=== PATIENT | female | born 1975 | race Caucasian/White ===

== ENCOUNTER 2016-10-26 17:45 | Observation (INO) | payer BC ==
[2016-10-26] MEDS ORDERED: SODIUM CHLORIDE 0.9% 1,000 ML IV ONE ×2 (18:33)
[2016-10-26] MEDS ORDERED: HYDROcodone/APAP 5-325MG 1 EACH TAB PO STA (18:33)
--- NOTE | 2016-10-26 18:39 | ED ---
Female Urogenital HPI - General Source: patient, RN notes reviewed, old records reviewed Mode of arrival: ambulatory Limitations: no limitations - History of Present Illness Last Menstrual Period: 10/26/16 <Myriam Burgess - Last Filed: 10/26/16 20:37> <Wicho Armendariz - Last Filed: 10/26/16 21:13> - General Chief complaint: Vaginal Bleeding Stated complaint: female gu Time Seen by Provider: 10/26/16 18:07 - History of Present Illness Initial comments: 40-year-old female presents to the emergency Department chief complaint of increased vaginal bleeding over the past 3 days. She reports that she said history of severe heavy menstrual cycles. She states that she is feeling somewhat weak and lightheaded. Patient reports that she's been going through a pad an hour. She reports that she just feels very tired. She states that she has some abdominal cramping. Denies any nausea or vomiting or other abdominal pain. She states that she had normal urination and bowel movements. She reports that she previously had take progesterone for managing her heavy menstrual cycles. She reports that she has not been taking that over the past 3 months as her FIELD ARTILLERY TARGETING TECHNICIAN Stotler take it anymore. Patient denies any recent fever , chills, shortness of breath, chest pain, back pain, abdominal pain, nausea vomiting, numbness or tingling, dysuria or hematuria, constipation or diarrhea, headaches or visual changes, or any other current symptoms (Myriam Burgess) - Related Data Home Medications Medication Instructions Recorded Confirmed Acetaminophen Tab [Tylenol Tab] 650 mg PO Q6H PRN 10/26/16 10/26/16 Diltiazem HCl [Cartia Xt] 120 mg PO DAILY 10/26/16 10/26/16 Pravastatin Sodium [Pravachol] 20 mg PO DAILY 10/26/16 10/26/16 Allergies Allergy/AdvReac Type Severity Reaction Status Date / Time No Known Allergies Allergy Verified 10/26/16 18:20 Review of Systems ROS Other: All systems not noted in ROS Statement are negative. <Myriam Burgess - Last Filed: 10/26/16 20:37> ROS Other: All systems not noted in ROS Statement are negative. <Wicho Armendariz - Last Filed: 10/26/16 21:13> ROS Statement: Those systems with pertinent positive or pertinent negative responses have been documented in the HPI. Past Medical History Past Medical History: Hyperlipidemia, Hypertension History of Any Multi-Drug Resistant Organisms: None Reported Past Surgical History: Section Past Psychological History: Depression Smoking Status: Never smoker Past Alcohol Use History: None Reported Past Drug Use History: None Reported <Myriam Burgess - Last Filed: 10/26/16 20:37> General Exam Limitations: no limitations General appearance: alert, in no apparent distress Head exam: Present: atraumatic, normocephalic, normal inspection Eye exam: Present: normal appearance, PERRL, EOMI. Absent: scleral icterus, conjunctival injection, periorbital swelling ENT exam: Present: normal exam, mucous membranes moist Neck exam: Present: normal inspection. Absent: tenderness, meningismus, lymphadenopathy Respiratory exam: Present: normal lung sounds bilaterally. Absent: respiratory distress, wheezes, rales, rhonchi, stridor Cardiovascular Exam: Present: regular rate, normal rhythm, normal heart sounds. Absent: systolic murmur, diastolic murmur, rubs, gallop, clicks GI/Abdominal exam: Present: soft, normal bowel sounds. Absent: distended, tenderness, guarding, rebound, rigid External exam: Present: normal external exam Speculum exam: Present: vaginal bleeding. Absent: normal speculum exam By manual exam: Present: normal by manual exam Extremities exam: Present: normal inspection, full ROM, normal capillary refill. Absent: tenderness, pedal edema, joint swelling, calf tenderness Back exam: Present: normal inspection Neurological exam: Present: alert, oriented X3, CN II-XII intact Psychiatric exam: Present: normal affect, normal mood Skin exam: Present: warm, dry, intact, normal color. Absent: rash <Myriam Burgess - Last Filed: 10/26/16 20:37> <Wicho Armendariz - Last Filed: 10/26/16 21:13> - General Exam Comments Initial Comments: 40-year-old female. No acute distress. (Myriam Burgess) Medical Decision Making - Lab Data Result diagrams: 10/26/16 19:00 10/26/16 19:00 <Myriam Burgess - Last Filed: 10/26/16 20:37> - Lab Data Result diagrams: 10/26/16 19:00 10/26/16 19:00 <Wicho Armendariz - Last Filed: 10/26/16 21:13> - Medical Decision Making 40-year-old female presents to the emergency Department chief complaint of increased vaginal bleeding over the past 3 days. She reports that she said history of severe heavy menstrual cycles. She states that she is feeling somewhat weak and lightheaded. Patient reports that she's been going through a pad an hour. She reports that she just feels very tired. She states that she has some abdominal cramping. Denies any nausea or vomiting or other abdominal pain. She states that she had normal urination and bowel movements. Patient has significant vaginal bleeding on exam. No significant abdominal tenderness. Patient received transvaginal ultrasound. Hemoglobin was noted to be low at 7.8. She does have a mellowing machine operator doctor From [place]. Patient Reports That She Has Not Seen Him in Many Months. She Recently Moved up Here. Discussed Case with Dr. Armendariz. Case Will Be Transferred to Dr. Armendariz at 8:32 PM. (Myriam Burgess) Patient presents today with heavy menstrual bleeding with a hemoglobin of only 7.8 and hematocrit 25. No old numbers are available for us to compare to. The patient reports increased vaginal bleeding for the past week. The patient did have an ultrasound and final impression is no evidence of endometrial mass. No adnexal mass or free fluid. No evidence of ovarian torsion. As read by Dr. Cifuentes. The patient's labs also included an INR 1.0, potassium 3.7 with a BUN 13 creatinine 0.81 the GFR greater than 60. Glucose 150. Patient is not . The case was discussed with Dr. mak on-call FIELD ARTILLERY TARGETING TECHNICIAN. Patient will receive 2 units of packed RBCs and a CBC in the morning. Dr. Armendariz (Wicho Armendariz) - Lab Data Lab Results 10/26/16 10/26/16 10/26/16 Range/Units 19:00 19:00 19:00 WBC 5.2 (3.8-10.6) k/uL RBC 3.53 L (3.80-5.40) m/uL Hgb 7.8 L (11.4-16.0) gm/dL Hct 25.5 L (34.0-46.0) % MCV 72.3 L (80.0-100.0) fL MCH 22.3 L (25.0-35.0) pg MCHC 30.8 L (31.0-37.0) g/dL RDW 17.4 H (11.5-15.5) % Plt Count 218 (150-450) k/uL Neutrophils % 65 % Lymphocytes % 26 % Monocytes % 4 % Eosinophils % 3 % Basophils % 1 % Neutrophils # 3.4 (1.3-7.7) k/uL Lymphocytes # 1.3 (1.0-4.8) k/uL Monocytes # 0.2 (0-1.0) k/uL Eosinophils # 0.2 (0-0.7) k/uL Basophils # 0.0 (0-0.2) k/uL Hypochromasia Marked Anisocytosis Slight Microcytosis Moderate PT 10.3 (9.0-12.0) sec INR 1.0 (<1.2) APTT 22.0 (22.0-30.0) sec Sodium 138 (137-145) mmol/L Potassium 3.7 (3.5-5.1) mmol/L Chloride 105 (98-107) mmol/L Carbon Dioxide 24 (22-30) mmol/L Anion Gap 9 mmol/L BUN 13 (7-17) mg/dL Creatinine 0.81 (0.52-1.04) mg/dL Est GFR (MDRD) Af Amer >60 (>60 ml/min/1.73 sqM) Est GFR (MDRD) Non-Af >60 (>60 ml/min/1.73 sqM) Glucose 150 H (74-99) mg/dL Calcium 8.6 (8.4-10.2) mg/dL Urine Color Urine Appearance (Clear) Urine pH (5.0-8.0) Ur Specific [place] (1.001-1.035) Urine Protein (Negative) Urine Glucose (UA) (Negative) Urine Ketones (Negative) Urine Blood (Negative) Urine Nitrite (Negative) Urine Bilirubin (Negative) Urine Urobilinogen (<2.0) mg/dL Ur Leukocyte Esterase (Negative) Urine RBC (0-5) /hpf Urine WBC (0-5) /hpf Ur Squamous Epith Cells (0-4) /hpf Urine HCG, Qual (Not Detectd) Blood Type Blood Type Recheck Antibody Screen Crossmatch Spec Expiration Date 10/26/16 10/26/16 10/26/16 Range/Units 19:00 19:00 19:00 WBC (3.8-10.6) k/uL RBC (3.80-5.40) m/uL Hgb (11.4-16.0) gm/dL Hct (34.0-46.0) % MCV (80.0-100.0) fL MCH (25.0-35.0) pg MCHC (31.0-37.0) g/dL RDW (11.5-15.5) % Plt Count (150-450) k/uL Neutrophils % % Lymphocytes % % Monocytes % % Eosinophils % % Basophils % % Neutrophils # (1.3-7.7) k/uL Lymphocytes # (1.0-4.8) k/uL Monocytes # (0-1.0) k/uL Eosinophils # (0-0.7) k/uL Basophils # (0-0.2) k/uL Hypochromasia Anisocytosis Microcytosis PT (9.0-12.0) sec INR (<1.2) APTT (22.0-30.0) sec Sodium (137-145) mmol/L Potassium (3.5-5.1) mmol/L Chloride (98-107) mmol/L Carbon Dioxide (22-30) mmol/L Anion Gap mmol/L BUN (7-17) mg/dL Creatinine (0.52-1.04) mg/dL Est GFR (MDRD) Af Amer (>60 ml/min/1.73 sqM) Est GFR (MDRD) Non-Af (>60 ml/min/1.73 sqM) Glucose (74-99) mg/dL Calcium (8.4-10.2) mg/dL Urine Color Red Urine Appearance Cloudy H (Clear) Urine pH 5.5 (5.0-8.0) Ur Specific [place] 1.019 (1.001-1.035) Urine Protein 1+ H (Negative) Urine Glucose (UA) Negative (Negative) Urine Ketones Negative (Negative) Urine Blood Large H (Negative) Urine Nitrite Negative (Negative) Urine Bilirubin Negative (Negative) Urine Urobilinogen <2.0 (<2.0) mg/dL Ur Leukocyte Esterase Moderate H (Negative) Urine RBC >182 H (0-5) /hpf Urine WBC >182 H (0-5) /hpf Ur Squamous Epith Cells 11 H (0-4) /hpf Urine HCG, Qual Not Detected (Not Detectd) Blood Type A Negative Blood Type Recheck CABO Indicated Antibody Screen NEGATIVE Crossmatch See Detail Spec Expiration Date 10/29/2016 - 2300 Disposition <Myriam Burgess - Last Filed: 10/26/16 20:37> <Wicho Armendariz - Last Filed: 10/26/16 21:13> Clinical Impression: Menorrhagia, Dysfunctional uterine bleeding Disposition: ADMITTED IP TO THIS [facility] Condition: Fair Referrals: Nonstaff,Physician [Primary Care Provider] - 1-2 days
[2016-10-26 19:15] LABS: Anisocytosis Slight; Basophils % (A) 1 %; CH 21.2; CHCM 29.4; Eosinophils # (A) 0.2 k/uL (0-0.7); Eosinophils % (A) 3 %; HCT 25.5 % (34.0-46.0); HGB 7.8 gm/dL (11.4-16.0); Hypochromasia Marked; Luc # (Auto) 0.07; Luc % (Auto) 1; Lymphocytes # (A) 1.3 k/uL (1.0-4.8); Lymphocytes % (A) 26 %; MCH 22.3 pg (25.0-35.0); MCHC 30.8 g/dL (31.0-37.0); MCV 72.3 fL (80.0-100.0); Mean Platelet Volume 7.9; Microcytosis Moderate; Monocytes # (A) 0.2 k/uL (0-1.0); Monocytes % (A) 4 %; Neutrophils # (A) 3.4 k/uL (1.3-7.7); Neutrophils % (A) 65 %; RBC 3.53 m/uL (3.80-5.40); RDW 17.4 % (11.5-15.5); WBC 5.2 k/uL (3.8-10.6); WBC (Perox) 5.06
[2016-10-26 19:23] LABS: Anion Gap 9 mmol/L; Blood Urea Nitrogen 13 mg/dL (7-17); Calcium 8.6 mg/dL (8.4-10.2); Carbon Dioxide 24 mmol/L (22-30); Chloride 105 mmol/L (98-107); Glucose 150 mg/dL (74-99); Non-African American GFR(MDRD) >60 (>60 ml/min/1.73 sqM); Potassium 3.7 mmol/L (3.5-5.1); Sodium 138 mmol/L (137-145)
[2016-10-26 19:34] LABS: Appearance,Urine Cloudy (Clear); Bilirubin,Urine Negative (Negative); Glucose,Urine (UA) Negative (Negative); Ketones,Urine Negative (Negative); Leukocyte Esterase,Urine Moderate (Negative); Nitrite,Urine Negative (Negative); PH, Urine 5.5 (5.0-8.0); Particle Count 14868; Protein,Urine 1+ (Negative); RBC,Urine >182 /hpf (0-5); Specific Gravity,Urine 1.019 (1.001-1.035); Squamous Epithelial Cell,Urine 11 /hpf (0-4); UA Billing (MACRO vs. MICRO) MICRO; Urobilinogen,Urine <2.0 mg/dL (<2.0); WBC,Urine >182 /hpf (0-5)
[2016-10-26 19:41] LABS: Prothrombin Time 10.3 sec (9.0-12.0)
--- NOTE | 2016-10-26 20:47 | US ---
EXAMINATION TYPE: US transvaginal DATE OF EXAM: 10/26/2016 COMPARISON: NONE CLINICAL HISTORY: Pain. EC patient with heavy and long duration of menses; feels tired; HT 5'7", WT 2 62lbs. TECHNIQUE: Transvaginal (TV) Date of LMP: 10/22/2016 EXAM MEASUREMENTS: Uterus: 9.0 x 7.0 x 5.8 cm Endometrial Stripe: 1.1 cm Right Ovary: 3.1 x 2.0 x 2.3 cm Left Ovary: 3.0 x 2.6 x 1.7 cm 1. Uterus: Retroverted ; multiple Nabothian cysts in Cervix with largest = 1.3 x 1.0 x 1.2cm; multip le, small hyperechoic, shadowing foci noted in left myometrium. 2. Endometrium: Day 5 LMP 3. Right Ovary: multiple small follicles with largest = 0.6 x 0.6 x 0.6cm 4. Left Ovary: multiple small follicles with largest = 0.9 x 0.7 x 0.5cm Spectral, color and waveform Doppler imaging shows good arterial and venous flow within the ovaries ; there is no evidence for ovarian torsion. 5. Bilateral Adnexa: wnl 6. Posterior cul-de-sac: wnl IMPRESSION: No evidence of endometrial mass. No adnexal mass or free fluid. No evidence of ovarian to rsion.
[2016-10-26] MEDS ORDERED: NALOXONE 0.4 MG/ML 1 ML VIAL IV PRN (21:14)
[2016-10-26] MEDS ORDERED: ACETAMINOPHEN TAB 325 MG TAB PO PRN (23:32)
[2016-10-26] MEDS ORDERED: ZOLPIDEM 5 MG TAB PO PRN (23:35)
[2016-10-27] MEDS: SODIUM CHLORIDE 0.9% 1,000 ML IV SCH ×2 (02:55→08:03)
--- NOTE | 2016-10-27 06:55 | P.HPIM ---
History of Present Illness H&P Date: 10/27/16 Chief Complaint: Vaginal bleeding, anemia A 40-year-old female ( 1 vaginal with 2 c sections) that presented to the emergency department last night with complaints of increased vaginal bleeding. She states that she was being seen by a learning disabilities specialist who was cycling her with progesterone secondary to this heavy menstrual bleeding. she recently moved to the area and is without care currently. she did d/c her progesterone, and that is when her bleeding increased. She presented last night hemoglobin was noted to be 7.8. At that time she was admitted to the hospital for 1 unit of packed red cells and for monitoring. ED did order a TVUS for evaluation of the pelvis. Review of Systems Constitutional: Reports fatigue Past Medical History Past Medical History: Hyperlipidemia, Hypertension History of Any Multi-Drug Resistant Organisms: None Reported Past Surgical History: Section Past Anesthesia/Blood Transfusion Reactions: No Reported Reaction Past Psychological History: Depression Smoking Status: Never smoker Past Alcohol Use History: None Reported Past Drug Use History: None Reported - Past Family History Mother Family Medical History: Diabetes Mellitus, Hyperlipidemia, Hypertension Medications and Allergies Home Medications Medication Instructions Recorded Confirmed Type Acetaminophen Tab [Tylenol Tab] 650 mg PO Q6H PRN 10/26/16 10/26/16 History Diltiazem HCl [Cartia Xt] 120 mg PO DAILY 10/26/16 10/26/16 History Pravastatin Sodium [Pravachol] 20 mg PO DAILY 10/26/16 10/26/16 History Allergies Allergy/AdvReac Type Severity Reaction Status Date / Time No Known Allergies Allergy Verified 10/26/16 18:20 Physical Exam Osteopathic Statement: *. No significant issues noted on an osteopathic structural exam other than those noted in the History and Physical/Consult. Vitals: Vital Signs Temp Pulse Pulse Resp BP BP Pulse Ox 10/27/16 01:57 98 F 80 18 123/63 10/26/16 23:37 98.5 F 84 18 147/68 10/26/16 23:22 97.9 F 88 14 128/75 99 10/26/16 23:07 98.2 F 86 18 140/72 10/26/16 23:05 98.2 F 86 18 140/72 10/26/16 22:57 98 F 87 18 138/62 10/26/16 21:19 98 F 92 18 138/62 99 10/26/16 19:09 70 18 100 10/26/16 18:03 98.4 F 107 H 18 153/91 96 Intake and Output 10/26/16 10/26/16 10/27/16 14:59 22:59 06:59 Intake Total 0 310 Balance 0 310 Intake: Blood Product 0 310 Rc As-1 Unit 0 310 [id number] Other: # Voids 2 Weight 119.204 kg Patient Weight 10/27/16 06:59 Weight 119.204 kg - Constitutional General appearance: average body habitus, cooperative, no acute distress - EENT Eyes: EOMI - Respiratory Respiratory: bilateral: CTA - Cardiovascular Rhythm: regular Results CBC & Chem 7: 10/26/16 19:00 10/26/16 19:00 Labs: Abnormal Lab Results - Last 24 Hours (Table) 10/26/16 10/26/16 10/26/16 Range/Units 19:00 19:00 19:00 RBC 3.53 L (3.80-5.40) m/uL Hgb 7.8 L (11.4-16.0) gm/dL Hct 25.5 L (34.0-46.0) % MCV 72.3 L (80.0-100.0) fL MCH 22.3 L (25.0-35.0) pg MCHC 30.8 L (31.0-37.0) g/dL RDW 17.4 H (11.5-15.5) % Glucose 150 H (74-99) mg/dL Urine Appearance (Clear) Urine Protein (Negative) Urine Blood (Negative) Ur Leukocyte Esterase (Negative) Urine RBC (0-5) /hpf Urine WBC (0-5) /hpf Ur Squamous Epith Cells (0-4) /hpf Crossmatch See Detail 10/26/16 Range/Units 19:00 RBC (3.80-5.40) m/uL Hgb (11.4-16.0) gm/dL Hct (34.0-46.0) % MCV (80.0-100.0) fL MCH (25.0-35.0) pg MCHC (31.0-37.0) g/dL RDW (11.5-15.5) % Glucose (74-99) mg/dL Urine Appearance Cloudy H (Clear) Urine Protein 1+ H (Negative) Urine Blood Large H (Negative) Ur Leukocyte Esterase Moderate H (Negative) Urine RBC >182 H (0-5) /hpf Urine WBC >182 H (0-5) /hpf Ur Squamous Epith Cells 11 H (0-4) /hpf Crossmatch Thrombosis Risk Factor Assmnt - Choose All That Apply Any of the Below Risk Factors Present?: Yes Each Factor Represents 1 point: Obesity (BMI >25) Other Risk Factors: No Other congenital or acquired thrombophilia - If yes, enter type in comment: No Thrombosis Risk Factor Assessment Total Risk Factor Score: 1 Thrombosis Risk Factor Assessment Level: Low Risk Assessment and Plan (1) Acute blood loss anemia Status: Acute (2) Menorrhagia Status: Acute Time with Patient: Less than 30 (plan of care discussed, will await am HGB and most likely d/c home as bleeding has decreased. plan to follow up with me at [facility] next week to discuss options)
[2016-10-27 07:27] VITALS: BP 136/75; PULSE 81; RESP 16; TEMP 97.9
[2016-10-27 08:39] LABS: Anion Gap 10 mmol/L; Anisocytosis Slight; Basophils % (A) 1 %; Blood Urea Nitrogen 9 mg/dL (7-17); CH 22.2; CHCM 29.3; Calcium 8.2 mg/dL (8.4-10.2); Carbon Dioxide 23 mmol/L (22-30); Chloride 108 mmol/L (98-107); Eosinophils # (A) 0.2 k/uL (0-0.7); Eosinophils % (A) 5 %; Glucose 115 mg/dL (74-99); HCT 28.4 % (34.0-46.0); HDW 4.01; HGB 8.3 gm/dL (11.4-16.0); Hypochromasia Marked; Luc # (Auto) 0.08; Luc % (Auto) 2; Lymphocytes # (A) 1.4 k/uL (1.0-4.8); Lymphocytes % (A) 32 %; MCH 22.2 pg (25.0-35.0); MCHC 29.3 g/dL (31.0-37.0); MCV 75.6 fL (80.0-100.0); Mean Platelet Volume 8.8; Microcytosis Slight; Monocytes # (A) 0.2 k/uL (0-1.0); Monocytes % (A) 4 %; Neutrophils # (A) 2.4 k/uL (1.3-7.7); Neutrophils % (A) 56 %; Non-African American GFR(MDRD) >60 (>60 ml/min/1.73 sqM); Poikilocytosis Moderate; Potassium 3.9 mmol/L (3.5-5.1); RBC 3.76 m/uL (3.80-5.40); Sodium 141 mmol/L (137-145); WBC 4.3 k/uL (3.8-10.6); WBC (Perox) 4.59
[2016-10-27] MEDS ORDERED: PRAVASTATIN SODIUM 20 MG TAB PO SCH (09:00)
[2016-10-27] MEDS ORDERED: DILTIAZEM CD 120 MG CAP.ER.24H PO SCH (09:00)
== END 2016-10-27 11:19 | disposition home or self-care (01) ==
LOC: EC 17:45 → 4MS4W 21:18
PROVIDERS: ADMIT Obstetrics & Gynecology Obstetrics; ATTEND Obstetrics & Gynecology Obstetrics
DX: N92.0 Excessive and frequent menstruation with regular cycle (principal); D62 Acute posthemorrhagic anemia; E78.5 Hyperlipidemia, unspecified; I10 Essential (primary) hypertension; Z79.899 Other long term (current) drug therapy
CPT/HCPCS: 36430; 96360; 96361 ×2; 99285; 36415; 86900; 86901; 80048 ×2; 85025 ×2; 85610; 85730; 86850; 86920; 81001; 81025; 93975; 76830; G0378 ×2; P9016

== ENCOUNTER → 2016-12-04 | Outpatient (CLI) | payer BC ==
[2016-12-04 14:13] LABS: Anisocytosis Slight; Basophils # (A) 0.1 k/uL (0-0.2); Basophils % (A) 1 %; CH 20.6; CHCM 28.2; Eosinophils # (A) 0.2 k/uL (0-0.7); Eosinophils % (A) 3 %; HCT 33.6 % (34.0-46.0); HDW 3.65; HGB 9.7 gm/dL (11.4-16.0); Hypochromasia Marked; Luc # (Auto) 0.13; Luc % (Auto) 3; Lymphocytes # (A) 1.3 k/uL (1.0-4.8); Lymphocytes % (A) 24 %; MCH 21.1 pg (25.0-35.0); MCHC 28.8 g/dL (31.0-37.0); MCV 73.4 fL (80.0-100.0); Mean Platelet Volume 7.6; Microcytosis Moderate; Monocytes # (A) 0.3 k/uL (0-1.0); Monocytes % (A) 6 %; Neutrophils # (A) 3.4 k/uL (1.3-7.7); Neutrophils % (A) 64 %; Poikilocytosis Slight; RBC 4.58 m/uL (3.80-5.40); RDW 17.2 % (11.5-15.5); WBC 5.3 k/uL (3.8-10.6); WBC (Perox) 5.82
== END | disposition home or self-care (01) ==
LOC: LABPAT 13:22
PROVIDERS: ATTEND Obstetrics & Gynecology Obstetrics
DX: Z01.810 Encounter for preprocedural cardiovascular examination (principal); N93.9 Abnormal uterine and vaginal bleeding, unspecified; Z01.812 Encounter for preprocedural laboratory examination
CPT/HCPCS: 85025; 93005

== ENCOUNTER 2016-12-17 07:25 | Day surgery (SDC) | payer BC ==
[2016-12-12 11:37] VITALS: BMI 40.7
--- NOTE | 2016-12-14 11:25 | P.HPIHPCON ---
History of Present Illness H&P Date: 12/14/16 Chief Complaint: AUB, anemia Medina is a pleasant 40 yo that was ween in the ED with c/o HMB. she states she is noting fatigue and heavy vaginal bleeding with clots. [facility] and a subsequent transfusion of 1 unit of Prbcs was given. ultrasound done on that admission revealed a normal size uterus of 9cm, and thickened endometrial lining. ovaries suspicious for PCOS. she states her had a vasectomy. Consent for Procedure: I have explained the operation/procedure to the patient, including the risks, benefits, side effects, alternative therapies (including not receiving the proposed treatment or service), the likelihood of the patient achieving his/her goals, and potential recuperation problems for the procedure/sedation/analgesia , as well as any blood products, if indicated. I also explained to the patient the risks, benefits and side effects of the alternatives, as well as the risks related to not receiving the proposed procedure, care, treatment, or services. - Constitutional Constitutional: Reports fatigue - Cardiovascular Cardiovascular: Reports high blood pressure, Denies chest pain, Denies shortness of breath - Respiratory Respiratory: Denies cough - Gastrointestinal Gastrointestinal: Denies diarrhea, Denies nausea - Genitourinary (Female) Genitourinary: Reports abnormal vaginal bleeding - Menstruation Menstruation: Reports cycle variable, Reports period heavy - Musculoskeletal Musculoskeletal: Reports as per HPI - Integumentary Integumentary: Reports as per HPI - Psychiatric Psychiatric: Denies anxiety, Denies depression - Endocrine Endocrine: Reports fatigue Past Medical History Past Medical History: Hyperlipidemia, Hypertension History of Any Multi-Drug Resistant Organisms: None Reported Past Surgical History: Section Past Anesthesia/Blood Transfusion Reactions: No Reported Reaction Smoking Status: Never smoker - Past Family History Mother Family Medical History: Diabetes Mellitus, Hyperlipidemia, Hypertension Medications and Allergies Home Medications Medication Instructions Recorded Confirmed Type Acetaminophen Tab [Tylenol Tab] 650 mg PO Q6H PRN 10/26/16 12/12/16 History Diltiazem HCl [Cartia Xt] 120 mg PO DAILY 10/26/16 12/12/16 History Melatonin 5 mg PO HS PRN 12/12/16 12/12/16 History Allergies Allergy/AdvReac Type Severity Reaction Status Date / Time No Known Allergies Allergy Verified 12/12/16 11:18 Surgical - Exam Osteopathic Statement: *. No significant issues noted on an osteopathic structural exam other than those noted in the History and Physical/Consult. - General well developed, well nourished, no distress - Eyes PERRL - Neck no masses - Respiratory normal respiratory effort, clear to auscultation - Cardiovascular Rhythm: regular - Abdomen Abdomen: soft, tender - Genitourinary normal external genitalia, normal perineum - Neurologic normal coordination - Musculoskeletal normal gait - Psychiatric oriented to time, speech is normal, memory intact Assessment and Plan (1) Acute blood loss anemia Narrative/Plan: plan for hysteroscopy dilation currettage with novasure endometrial ablation. procedure reviewed at length, questions answered and risks reviewed with pt. questions answered and informed consent obtained Status: Acute (2) Dysfunctional uterine bleeding Status: Acute (3) Menorrhagia Status: Acute
[~2016-12-17 07:25] MED LIST: LACTATED RINGERS 1,000 ML IV SCH; Pre Op ABX Message 1 EACH MISC MISCELLANE ONE; fentaNYL (PF) 50 MCG/ML 2 ML AMP IV PRN
[2016-12-17] MEDS ORDERED: LIDOCAINE 1% 20 ML VIAL (10MG/ML) FOR IV START INTRADERMA ONE (08:20)
[2016-12-17] MEDS ORDERED: ONDANSETRON 4 MG/2 ML VIAL IVP ONE (08:26)
[2016-12-17] MEDS ORDERED: DEXAMETHASONE SOD PHOSPHATE 4 MG/ML 1 ML VIAL IVP ONE (08:28)
[2016-12-17] MEDS ORDERED: MIDAZOLAM 2 MG/2 ML VIAL ONE (08:40)
[2016-12-17] MEDS ORDERED: fentaNYL (PF) 50 MCG/ML 2 ML AMP ONE (08:40)
[2016-12-17] MEDS ORDERED: LIDOCAINE 1% INJ 10MG/ML (20 ML MDV) ONE (08:40)
[2016-12-17] MEDS ORDERED: KETOROLAC 30 MG/ML 1 ML VIAL ONE (08:40)
[2016-12-17] MEDS ORDERED: PROPOFOL 10 MG/ML 20 ML VIAL IV ONE (08:40)
[2016-12-17 09:25] VITALS: TEMP 97.5
[2016-12-17] MEDS ORDERED: Acetaminophen-Codeine 300-30mg TAB PO PRN (09:46)
[2016-12-17] MEDS ORDERED: ONDANSETRON 4 MG/2 ML VIAL IVP PRN (09:46)
[2016-12-17] MEDS ORDERED: MELATONIN 5 MG TABLET PO PRN (09:54)
[2016-12-17] MEDS ORDERED: ACETAMINOPHEN TAB 325 MG TAB PO PRN (09:54)
--- NOTE | 2016-12-17 09:54 | P.OP ---
Date of Procedure: 12/17/16 Preoperative Diagnosis: Abnormal uterine bleeding, anemia Postoperative Diagnosis: Same Procedure(s) Performed: Hysteroscopy, dilation and curettage, NovaSure endometrial ablation Implants: Anesthesia: GETA, other Surgeon: Beronica Tineo Estimated Blood Loss (ml): 5 IV fluids (ml): 500 Urine output (ml): 100 Pathology: other (Endometrial curettings) Condition: stable Disposition: PACU Indications for Procedure: Heavy irregular menses, anemia Operative Findings: Normal uterine cavity sounding to 7 cm, polyps or intracavitary fibroids noted NovaSure ablation done for 83 seconds at a power of 55 Description of Procedure: Patient was taken to the operating room where general anesthesia was obtained without difficulty by the anesthesia department. She was prepped and draped in the normal sterile fashion in the dorsal lithotomy position. A red rubber catheter was then used to drain the bladder of clear yellow urine. A weighted speculum was placed in the posterior vaginal vault, the anterior lip of the cervix was visualized and grasped with a single-tooth tenaculum. The endocervical canal was then dilated to approximately 18. The uterus was sounded prior to this and found to be 7 cm. Hysteroscope was placed through the cervix and toward the endometrial cavity and normal cavity was noted, proliferative endometrium was visualized. A sharp curettage was performed until gritty texture was noted in all 4 quadrants of the endometrial cavity. The NovaSure device was then opened and operated according to assembled wood products repairer's instructions, it was operated for 83 seconds at a power of 55. Afterwards the device was removed intact without difficulty. The single tooth tenaculum was taken off of the anterior lip of the cervix, hemostasis was appreciated. All instruments were removed from the patient's vaginal vault. All counts are correct 2 patient tolerated procedure well.
[2016-12-17 10:44] VITALS: RESP 18
[2016-12-17 11:01] VITALS: BP 145/78; PULSE 67
[2016-12-18] MEDS ORDERED: DILTIAZEM HCL 120 MG PO SCH (09:00)
== END 2016-12-17 11:16 | disposition home or self-care (01) ==
LOC: OR 07:25
PROVIDERS: ATTEND Obstetrics & Gynecology Obstetrics
DX: N93.8 Other specified abnormal uterine and vaginal bleeding (principal); D62 Acute posthemorrhagic anemia; N92.1 Excessive and frequent menstruation with irregular cycle; E78.5 Hyperlipidemia, unspecified; I10 Essential (primary) hypertension; K21.9 Gastro-esophageal reflux disease without esophagitis; Z79.899 Other long term (current) drug therapy
CPT/HCPCS: 81025; 88305; 58563; J2250; J1100; J2405; J2001; J3010; J1885; J2704

== ENCOUNTER 2018-09-15 11:06 | Emergency (ER) | payer BC ==
[2018-09-15 11:36] VITALS: RESP 18
[2018-09-15] MEDS ORDERED: MORPHINE SULFATE 4 MG/ML SYRINGE IV STA (11:48)
[2018-09-15] MEDS ORDERED: SODIUM CHLORIDE 0.9% 1,000 ML IV STA (11:48)
[2018-09-15] MEDS ORDERED: ONDANSETRON 4 MG/2 ML VIAL IVP STA (11:48)
--- NOTE | 2018-09-15 11:56 | ED ---
Abdominal Pain HPI - General Chief Complaint: Abdominal Pain Stated Complaint: abdominal pain Time Seen by Provider: 09/15/18 11:38 Source: patient, RN notes reviewed Mode of arrival: ambulatory Limitations: no limitations - History of Present Illness Initial Comments: 42-year-old female presents emergency Department with chief complaint of increasing abdominal pain. Patient is to last couple days she's felt bloated, increasing diffuse abdominal pain. Patient states that she is scheduled for hysterectomy and a left oophorectomy. Patient states that she has endometriosis and has a mass on her left ovary. Patient states she has no localized pain in the left side. She just feels very uncomfortable, nauseated no vomiting no diarrhea no constipation, no dysuria no hematuria. - Related Data Home Medications Medication Instructions Recorded Confirmed FLUoxetine HCL [PROzac] 40 mg PO DAILY 09/15/18 09/15/18 Lisinopril-Hctz 20-25 mg 1 tab PO DAILY 09/15/18 09/15/18 [Zestoretic 20-25] Pravastatin Sodium [Pravachol] 40 mg PO DAILY 09/15/18 09/15/18 Allergies Allergy/AdvReac Type Severity Reaction Status Date / Time No Known Allergies Allergy Verified 09/15/18 12:34 Review of Systems ROS Statement: Those systems with pertinent positive or pertinent negative responses have been documented in the HPI. ROS Other: All systems not noted in ROS Statement are negative. Past Medical History Past Medical History: Hyperlipidemia, Hypertension Additional Past Medical History / Comment(s): endometriosis History of Any Multi-Drug Resistant Organisms: None Reported Past Surgical History: Section, Uterine Ablation Past Anesthesia/Blood Transfusion Reactions: No Reported Reaction Past Psychological History: Depression Smoking Status: Never smoker Past Alcohol Use History: None Reported Past Drug Use History: None Reported - Past Family History Mother Family Medical History: Diabetes Mellitus, Hyperlipidemia, Hypertension General Exam General appearance: alert, in no apparent distress Head exam: Present: atraumatic, normocephalic, normal inspection Eye exam: Present: normal appearance, PERRL, EOMI. Absent: scleral icterus, conjunctival injection, periorbital swelling ENT exam: Present: normal exam, normal oropharynx, mucous membranes moist Respiratory exam: Present: normal lung sounds bilaterally. Absent: respiratory distress, wheezes, rales, rhonchi, stridor Cardiovascular Exam: Present: regular rate, normal rhythm, normal heart sounds. Absent: systolic murmur, diastolic murmur, rubs, gallop, clicks GI/Abdominal exam: Present: soft, tenderness, normal bowel sounds. Absent: distended, guarding, rebound, rigid Back exam: Absent: CVA tenderness (R), CVA tenderness (L) Neurological exam: Present: alert, oriented X3, CN II-XII intact Skin exam: Present: warm, dry, intact, normal color. Absent: rash Course Vital Signs 09/15/18 09/15/18 09/15/18 11:33 12:30 14:00 Temperature 98.9 F Pulse Rate 95 93 77 Respiratory 18 18 18 Rate Blood Pressure 112/66 132/76 99/49 O2 Sat by Pulse 96 96 98 Oximetry Medical Decision Making - Medical Decision Making 42-year-old female presents emergency Department with chief complaint abdominal pain. Patient has a known mass and underlying endometriosis. Patient's pain is improved. Vitals reviewed and are stable. She did have mild blood pressure drop after morphine though she responded well. Patient CT showed evidence of fluid collection around the mass in the left side which is unknown. She may have increasing pain to cystic rupture. Patient's pain has been increasing last couple days now sudden onset at this time. - Lab Data Result diagrams: 09/15/18 12:30 09/15/18 12:30 Lab Results 09/15/18 09/15/18 09/15/18 Range/Units 12:30 12:30 12:30 WBC 8.0 (3.8-10.6) k/uL RBC 4.74 (3.80-5.40) m/uL Hgb 13.5 (11.4-16.0) gm/dL Hct 41.5 (34.0-46.0) % MCV 87.7 (80.0-100.0) fL MCH 28.4 (25.0-35.0) pg MCHC 32.4 (31.0-37.0) g/dL RDW 13.9 (11.5-15.5) % Plt Count 190 (150-450) k/uL Neutrophils % 76 % Lymphocytes % 17 % Monocytes % 4 % Eosinophils % 2 % Basophils % 0 % Neutrophils # 6.1 (1.3-7.7) k/uL Lymphocytes # 1.3 (1.0-4.8) k/uL Monocytes # 0.3 (0-1.0) k/uL Eosinophils # 0.2 (0-0.7) k/uL Basophils # 0.0 (0-0.2) k/uL Sodium 139 (137-145) mmol/L Potassium 3.9 (3.5-5.1) mmol/L Chloride 103 (98-107) mmol/L Carbon Dioxide 29 (22-30) mmol/L Anion Gap 7 mmol/L BUN 11 (7-17) mg/dL Creatinine 0.79 (0.52-1.04) mg/dL Est GFR (CKD-EPI)AfAm >90 (>60 ml/min/1.73 sqM) Est GFR (CKD-EPI)NonAf >90 (>60 ml/min/1.73 sqM) Glucose 97 (74-99) mg/dL Calcium 9.0 (8.4-10.2) mg/dL Total Bilirubin 0.8 (0.2-1.3) mg/dL AST 20 (14-36) U/L ALT 21 (9-52) U/L Alkaline Phosphatase 64 (38-126) U/L Total Protein 7.4 (6.3-8.2) g/dL Albumin 4.4 (3.5-5.0) g/dL Lipase 138 (23-300) U/L Urine Color Yellow Urine Appearance Clear (Clear) Urine pH 6.0 (5.0-8.0) Ur Specific [place] 1.025 (1.001-1.035) Urine Protein Trace H (Negative) Urine Glucose (UA) Negative (Negative) Urine Ketones Negative (Negative) Urine Blood Negative (Negative) Urine Nitrite Negative (Negative) Urine Bilirubin Negative (Negative) Urine Urobilinogen <2.0 (<2.0) mg/dL Ur Leukocyte Esterase Negative (Negative) Disposition Clinical Impression: Abdominal pain, Ovarian mass Disposition: HOME SELF-CARE Condition: Stable Instructions (If sedation given, give patient instructions): Abdominal Pain (ED) Additional Instructions: Please return to the Emergency Department if symptoms worsen or any other concerns. Is patient prescribed a controlled substance at d/c from ED?: No Referrals: Juliann Almaraz DO [Primary Care Provider] - 1-2 days Beronica Tineo DO [Doctor of Osteopathic Medicine] - 1-2 days Time of Disposition: 14:32
[2018-09-15 12:48] LABS: Basophils % (A) 0 %; Eosinophils # (A) 0.2 k/uL (0-0.7); Eosinophils % (A) 2 %; HCT 41.5 % (34.0-46.0); HGB 13.5 gm/dL (11.4-16.0); Lymphocytes # (A) 1.3 k/uL (1.0-4.8); Lymphocytes % (A) 17 %; MCH 28.4 pg (25.0-35.0); MCHC 32.4 g/dL (31.0-37.0); MCV 87.7 fL (80.0-100.0); Mean Platelet Volume 7.8; Monocytes # (A) 0.3 k/uL (0-1.0); Monocytes % (A) 4 %; Neutrophils # (A) 6.1 k/uL (1.3-7.7); Neutrophils % (A) 76 %; Platelet Count 190 k/uL (150-450); RBC 4.74 m/uL (3.80-5.40); RDW 13.9 % (11.5-15.5)
[2018-09-15 12:49] LABS: Appearance,Urine Clear (Clear); Bilirubin,Urine Negative (Negative); Blood,Urine Negative (Negative); Color,Urine Yellow; Glucose,Urine (UA) Negative (Negative); Ketones,Urine Negative (Negative); Leukocyte Esterase,Urine Negative (Negative); Nitrite,Urine Negative (Negative); Protein,Urine Trace (Negative); Specific Gravity,Urine 1.025 (1.001-1.035); Urobilinogen,Urine <2.0 mg/dL (<2.0)
[2018-09-15 12:56] LABS: ALT 21 U/L (9-52); AST 20 U/L (14-36); African American GFR (CKD) >90 (>60 ml/min/1.73 sqM); Albumin 4.4 g/dL (3.5-5.0); Alkaline Phosphatase 64 U/L (38-126); Anion Gap 7 mmol/L; Blood Urea Nitrogen 11 mg/dL (7-17); Carbon Dioxide 29 mmol/L (22-30); Chloride 103 mmol/L (98-107); Glucose 97 mg/dL (74-99); Lipase 138 U/L (23-300); Potassium 3.9 mmol/L (3.5-5.1); Sodium 139 mmol/L (137-145); Total Bilirubin 0.8 mg/dL (0.2-1.3); Total Protein 7.4 g/dL (6.3-8.2)
--- NOTE | 2018-09-15 13:38 | CT ---
EXAMINATION TYPE: CT abdomen pelvis w con DATE OF EXAM: 09/15/2018 COMPARISON: None HISTORY: LLQ pain CT DLP: 1616.5 mGycm Automated exposure control for dose reduction was used. CONTRAST: CT scan of the abdomen pelvis is performed with IV Contrast, patient injected with 100 mL of Isovue 3 00. FINDINGS- LUNG BASES-subsegmental changes involving the lung bases most typical of atelectasis.. LIVER/GB-liver slightly reduced in attenuation may been the basis of hepatic steatosis. There is a ro unded area of hyperdensity involving the dome of the liver measuring 1.8 cm. Additional area of incre ased density near the caudate lobe of the liver is nonspecific and should be correlated with ultrasou nd.. PANCREAS- No gross abnormality is seen. SPLEEN- No gross abnormality is seen. ADRENALS-1.2 cm right adrenal indeterminate nodule measuring 25 Hounsfield units.. KIDNEYS/BLADDER- no hydronephrosis nephrolithiasis or renal mass. BOWEL- no bowel dilatation. Normal appendix. LYMPH NODES- No greater than 1cm abdominal or pelvic lymph nodes areappreciated. OSSEOUS STRUCTURES-hypertrophic and degenerative change L5-S1 with vacuum disc and bilateral foramina l encroachment.. OTHER- there is a complex cystic mass within the left adnexa measuring at least 5 cm. Small to moder ate amount of free fluid in the pelvis. Some which may be hyperdense and have a hemorrhagic component . IMPRESSION- 1. There is a complex cystic mass in the left adnexa likely ovarian measuring approximately 5 cm surr ounding fluid fluid some of which does appear to be slightly hyperdense and may have a hemorrhagic co mponent. Endometrium also appears to be thickened measuring 1.8 cm. Correlate with pelvic ultrasound. 2. There is a 1.8 cm hyperdense lesion within the dome of the liver and within the caudate lobe which could represent focal fatty sparing or flash hemangioma. Follow-up ultrasound or MRI of the abdomen suggested. 3. Indeterminate right adrenal nodule measuring 1.2 cm.
[2018-09-15] MEDS ORDERED: KETOROLAC 30 MG/ML 1 ML VIAL IVP STA (14:30)
[2018-09-15] MEDS ORDERED: ACET/COD 300 MG/30 MG STARTER PACK 6 TAB BTL PO STA (14:30)
[2018-09-15 15:11] VITALS: BP 113/67; PULSE 72; TEMP 97.8
== END 2018-09-15 15:11 | disposition home or self-care (01) ==
LOC: EC 11:06
DX: N83.8 Other noninflammatory disorders of ovary, fallopian tube and broad ligament (principal); R10.84 Generalized abdominal pain; R03.1 Nonspecific low blood-pressure reading; E78.5 Hyperlipidemia, unspecified; I10 Essential (primary) hypertension; F32.9 Major depressive disorder, single episode, unspecified; Z87.42 Personal history of other diseases of the female genital tract; Z98.890 Other specified postprocedural states; Z79.899 Other long term (current) drug therapy
CPT/HCPCS: 36415; 80053; 83690; 85025; 81003; 74177; 99284; 96374; 96375 ×2; 96361 ×3; J2270; J2405; J1885; Q9967

== ENCOUNTER → 2018-09-23 | Outpatient (CLI) | payer BC ==
[2018-09-23 13:16] LABS: Basophils # (A) 0.1 k/uL (0-0.2); Basophils % (A) 1 %; Eosinophils # (A) 0.2 k/uL (0-0.7); Eosinophils % (A) 3 %; HCT 42.5 % (34.0-46.0); HGB 13.3 gm/dL (11.4-16.0); Lymphocytes # (A) 1.8 k/uL (1.0-4.8); Lymphocytes % (A) 29 %; MCHC 31.4 g/dL (31.0-37.0); MCV 89.2 fL (80.0-100.0); Mean Platelet Volume 7.8; Monocytes # (A) 0.3 k/uL (0-1.0); Monocytes % (A) 5 %; Neutrophils # (A) 3.6 k/uL (1.3-7.7); Neutrophils % (A) 60 %; Platelet Count 247 k/uL (150-450); RBC 4.76 m/uL (3.80-5.40); RDW 14.4 % (11.5-15.5)
[2018-09-23 13:24] LABS: African American GFR (CKD) >90 (>60 ml/min/1.73 sqM); Anion Gap 7 mmol/L; Blood Urea Nitrogen 15 mg/dL (7-17); Carbon Dioxide 30 mmol/L (22-30); Chloride 102 mmol/L (98-107); Glucose 94 mg/dL (74-99); Potassium 4.3 mmol/L (3.5-5.1); Sodium 139 mmol/L (137-145)
== END | disposition home or self-care (01) ==
LOC: LABPAT 12:53
PROVIDERS: ATTEND Obstetrics & Gynecology Obstetrics
DX: Z01.818 Encounter for other preprocedural examination (principal); I10 Essential (primary) hypertension; N80.9 Endometriosis, unspecified; Z01.812 Encounter for preprocedural laboratory examination
CPT/HCPCS: 80051; 82565; 82947; 84520; 85025; 86850; 86900; 86901; 87086; 93005

== ENCOUNTER 2018-09-30 08:42 | Day surgery (SDC) | payer BC ==
[~2018-09-30 08:42] MED LIST changes: +ACETAMINOPHEN IV (For NPO) 1,000 MG in EMPTY BAG 1 BAG IVPB ONE; +DEXAMETHASONE SOD PHOSPHATE 10 MG/ML 1 ML VIAL IV ONE; -LACTATED RINGERS 1,000 ML IV SCH; +LIDOCAINE 1% 20 ML VIAL (10MG/ML) FOR IV START INTRADERMA PRN; +MIDAZOLAM 2 MG/2 ML VIAL IV PRN; +ONDANSETRON 4 MG/2 ML VIAL IVP ONE; -Pre Op ABX Message 1 EACH MISC MISCELLANE ONE; +SCOPOLAMINE 1.5MG/72HR PATCH TRANSDERM ONE; +ceFAZolin IN SWFI 2 GM/20 ML SYRINGE IVP ONE; -fentaNYL (PF) 50 MCG/ML 2 ML AMP IV PRN
[2018-09-30] MEDS: LACTATED RINGERS 1,000 ML IV SCH ×2 (09:44→09:45)
[2018-09-30] MEDS ORDERED: LIDOCAINE 1% 20 ML VIAL (10MG/ML) FOR IV START INTRADERMA ONE (09:45)
[2018-09-30] MEDS ORDERED: SUCCINYLCHOLINE CHLORIDE 100 MG/5 ML SYR IV ONE (10:09)
[2018-09-30] MEDS ORDERED: HYDROmorphone (PF) 1 MG/ML ONE (10:09)
[2018-09-30] MEDS ORDERED: GLYCOPYRROLATE 0.2 MG/ML 2 ML VIAL ONE (10:09)
[2018-09-30] MEDS ORDERED: ROCURONIUM BROMIDE 10 MG/ML 10 ML VIAL IV ONE (10:09)
[2018-09-30] MEDS ORDERED: fentaNYL (PF) 50 MCG/ML 2 ML AMP ONE (10:09)
[2018-09-30] MEDS ORDERED: LIDOCAINE 1% INJ 10MG/ML (20 ML MDV) ONE (10:09)
[2018-09-30] MEDS ORDERED: ePHEDrine SULFATE/0.9% NACL/PF 50 MG/5 ML SYRINGE IV ONE (10:09)
[2018-09-30] MEDS ORDERED: NEOSTIGMINE 1 MG/ML 10 ML VIAL ONE (10:09)
[2018-09-30] MEDS ORDERED: MIDAZOLAM 2 MG/2 ML VIAL ONE (10:09)
[2018-09-30] MEDS ORDERED: PHENYLEPHRINE-0.9% NACL SYG 1 MG/10 ML SYRINGE ONE (10:09)
[2018-09-30] MEDS ORDERED: PROPOFOL 10 MG/ML 20 ML VIAL IV ONE (10:09)
[2018-09-30] MEDS ORDERED: BUPIVACAINE (PF) 0.25% 30 ML VIAL SQ ONE ×2 (10:51→12:43)
[2018-09-30] MEDS ORDERED: LACTATED RINGERS 1,000 ML IV ONE ×2 (11:11)
[2018-09-30] MEDS ORDERED: metroNIDAZOLE-NS PMX 500 MG in SALINE 1 100ML.BAG IVPB STA (11:24)
[2018-09-30] MEDS ORDERED: Acetaminophen-Codeine 300-30mg TAB PO PRN ×2 (12:40)
[2018-09-30] MEDS: HYDROmorphone 0.5 MG/0.5 ML SYRINGE IVP PRN ×2 (13:31→13:49)
[2018-09-30 14:49] VITALS: BMI 40.6
--- NOTE | 2018-09-30 14:54 | P.OP ---
Date of Procedure: 09/30/18 Preoperative Diagnosis: Endometriosis, endometrioma, pelvic pain Postoperative Diagnosis: Same Procedure(s) Performed: Robotic-assisted vaginal hysterectomy, left salpingo-oophorectomy, diagnostic cystoscopy, extensive lysis of adhesions Anesthesia: GETA Estimated Blood Loss (ml): 200 IV fluids (ml): 1,700 Urine output (ml): 200 Pathology: none sent (Uterus cervix left fallopian tube and ovary) Condition: stable Disposition: PACU Indications for Procedure: Extensive stage IV endometriosis with enlarged endometrioma, pelvic pain Operative Findings: Stage IV endometriosis with obliteration of the cul-de-sac secondary to enlarged endometrioma normal-appearing right ovary that has been retroperitonealized fallopian tube on the right appeared normal left ovary was noted to be adherent to the left pelvic sidewall and endometrioma was filling the entire cul-de-sac. Anterior bladder adhesions were noted from prior C-sections. Description of Procedure: Patient was seen in the preoperative area and procedure was once again reviewed with the patient. She is counseled on the risks of surgery including but not limited to infection, bleeding, damage to bladder, bowel, ureter, other pelvic structures given her history of endometriosis and 2 prior C-sections. Patient was counseled extensively about bladder injury secondary to her C-sections in addition. All questions were answered to the patient's satisfaction and she was taken back to the operating suite. General anesthesia was obtained without difficulty by the anesthesia department. She was then prepped and draped in normal sterile fashion in the dorsal lithotomy position. Michael catheter was placed under sterile technique. Weighted speculum was placed in the posterior vaginal vault the anterior lip of the cervix was visualized and the anterior lip of the cervix was grasped with a single-tooth tenaculum. Endocervical canal was then dilated and a JumpSeller care uterine manipulator was placed. The cervical cap was then placed snugly against the cervix and all instruments were removed from the patient's vaginal vault. Attention was then turned to the patient's abdomen where 2 finger breaths above the umbilicus a small skin incision is made. Through this incision the Veress needle is placed. Once the Veress needle was deemed to be in the proper position with a drop of CO2 pressure with insufflation of CO2 gas CO2 insufflation was allowed to occur. Approximately 3 L of CO2 gas were used to obtain pneumoperitoneum. At this time the incision was elongated to 12 mm and a 12 mm trocar and sleeve is placed through the skin incision and toward the pneumoperitoneum under direct visualization. The trocar was removed with the sheath remaining in place. The above-noted findings were visualized. At this time the additional port sites were placed at 10 cm lateral and 370 m inferior to the midline port these are 8 mm ports and operative ports and the da Wilbert machine these are placed under direct visualization. In the l eft upper quadrant a 12 mm trocar and sleeve is placed under direct visualization. At this time anterior/left lower adhesions were noted these were taken down sharply prior to docking the robot. Once these adhesions were down visualization was appropriate the da Wilbert robot was docked in the usual fashion in the operative arms are placed. In the right operative arm the monopolar scissors is placed in left operative arm the bipolar forceps is placed. Attention was then turned to the patient's right uterine ovarian ligament it was coagulated distally and proximally and divided. This continued through the broad and toward the round which was visualized coagulated distally and proximally and divided. The ovary was noted to be within the pelvic sidewall at this time. The bladder flap from the right was then created using sharp and blunt dissection. Attention then turned the patient's left adnexa a large left endometrioma was noted to be filling the posterior cul-de-sac this was then bluntly dissected off of the posterior cul-de-sac and elevated. The left infundibulopelvic ligament was visualized coagulated distally and proximally and divided hemostasis was appreciated. This continued through the broad and toward the round which was coagulated distally and proximally and divided. Hemostasis was appreciated. The uterine artery was then skeletonized and the anterior bladder flap was then created using sharp dissection. The bladder was then dissected away from the operating field with a Ray-Radha. The ascending branch the uterine artery was visualized regular distally and proximally. This was then repeated on the opposite side. Continued dissection of the cyst wall was then done and the ovary was then identified. This was then transected with good hemostasis. At this time the only remaining attachment was a vaginal attachment therefore colpotomy incision was made in a circumferential fashion. The patient's uterus cervix left fallopian tube and ovary were then delivered through the vaginal opening. Of note the ovary was dissected and removed separate to the uterus therefore an Endo Catch bag And placed into the abdomen and this Endo Catch bag was placed through the vaginal opening once the uterus was removed. The vaginal cuff was then copiously irrigated hemostasis was appreciated. The vaginal cuff was then closed with numerous [id number] sutures of 0 Vicryl. Excellent for sutures were used to obtain closure. FloSeal was placed along the vaginal cuff. At this time attention was then turned to the patient's Michael catheter which was removed without difficulty the cystoscope was opened and placed through the urethra and toward the bladder bladder bubble was noted both ureteral of persistent noted to be spilling clear yellow urine. There were no bladder defects being noted. The cystoscopy fluid and the cystoscope are removed the Michael catheter was then replaced. Attention was then turned the patient's abdomen where the skin incisions were closed with 4-0 Vicryl in a subcuticular fashion. Steri-Strips and sterile dressings were applied as needed. All counts were correct x 2, and patient was taken to the recovery room stable and in good condition
[2018-09-30 19:56] VITALS: RESP 18
[2018-09-30] MEDS ORDERED: IBUPROFEN IV 800 MG in SODIUM CHLORIDE 0.9% 250 ML IV ONE (20:00)
[2018-10-01] MEDS ORDERED: Acetaminophen-Codeine 300-30mg TAB ONE (03:00)
[2018-10-01 06:07] VITALS: PULSE 95
[2018-10-01] MEDS ORDERED: HYDROcodone/APAP 5-325MG 1 EACH TAB PO PRN ×2 (08:35)
--- NOTE | 2018-10-01 08:40 | P.DS ---
Providers Date of admission: 09/30/2018 Expected date of discharge: 10/01/18 Attending physician: Beronica Tineo Primary care physician: Juliann Almaraz - Discharge Diagnosis(es) (1) Endometriosis Current Visit: Yes Status: Acute (2) Pelvic pain Current Visit: Yes Status: Acute (3) Ovarian mass Current Visit: No Status: Acute Hospital Course: This is a pleasant 42-year-old non patient that presented to the [facility] for robotic cyst vaginal hysterectomy with unilateral nephrectomy, diagnostic cystoscopy. Patient had a known history of endometriosis and was diagnosed us with an enlarged presumed endometrioma based on ultrasound findings. Patient elected definitive treatment with hysterectomy and hopefully unilateral topical vitrectomy. She does wish ovarian conservation of one ovary due to her age in wish for her own hormonal support. Patient was taken to the operating suite surgery was performed for further details on the procedure please see the operative report. Patient's postoperative course has been completed by pain control issues. She is complaining of significant gas discomfort. She has noted minimal ambulation. We will encourage ambulation on this postop day #1 and change pain medications and hopes for discharge later this afternoon. Overall patient is looking well vital signs are stable and we are awaiting labs this morning. Patient is tolerating a regular diet without nausea or vomiting. As stated above she has minimal ambulation. She denies vaginal bleeding. She denies shortness of breath or chest pain at this time. The only discomfort she is noting is gas discomfort. Patient Condition at Discharge: Good Plan - Discharge Summary Discharge Rx Participant: Yes New Discharge Prescriptions: No Action Pravastatin Sodium [Pravachol] 40 mg PO DAILY FLUoxetine HCL [PROzac] 40 mg PO DAILY Lisinopril-Hctz 20-25 mg [Zestoretic 20-25] 1 tab PO DAILY Discharge Medication List FLUoxetine HCL [PROzac] 40 mg PO DAILY 09/15/18 [History] Lisinopril-Hctz 20-25 mg [Zestoretic 20-25] 1 tab PO DAILY 09/15/18 [History] Pravastatin Sodium [Pravachol] 40 mg PO DAILY 09/15/18 [History] Follow up Appointment(s)/Referral(s): Beronica Tineo DO [Doctor of Osteopathic Medicine] - 1 Week Patient Instructions/Handouts: Laparoscopic Hysterectomy (DC), Laparoscopic Hysterectomy (GEN) Discharge Disposition: HOME SELF-CARE
[2018-10-01] MEDS ORDERED: FLUoxetine HCL 20 MG CAP PO SCH (09:00)
[2018-10-01 09:34] LABS: Basophils % (A) 0 %; Eosinophils # (A) 0.1 k/uL (0-0.7); Eosinophils % (A) 1 %; HCT 33.5 % (34.0-46.0); HGB 10.9 gm/dL (11.4-16.0); Lymphocytes # (A) 1.4 k/uL (1.0-4.8); Lymphocytes % (A) 18 %; MCH 28.3 pg (25.0-35.0); MCHC 32.6 g/dL (31.0-37.0); Monocytes # (A) 0.3 k/uL (0-1.0); Monocytes % (A) 4 %; Neutrophils # (A) 5.7 k/uL (1.3-7.7); Neutrophils % (A) 75 %; Platelet Count 171 k/uL (150-450); RBC 3.85 m/uL (3.80-5.40); RDW 14.1 % (11.5-15.5); WBC 7.7 k/uL (3.8-10.6)
[2018-10-01 10:50] VITALS: BP 101/65; TEMP 98.3
== END 2018-10-01 13:37 | disposition home or self-care (01) ==
LOC: OR 08:42 → 4SSUR 13:35 → OR 10-01 13:37
PROVIDERS: ATTEND Obstetrics & Gynecology Obstetrics
DX: N80.0 Endometriosis of uterus (principal); N80.3 Endometriosis of pelvic peritoneum; N72 Inflammatory disease of cervix uteri; N80.2 Endometriosis of fallopian tube; N83.02 Follicular cyst of left ovary; N83.202 Unspecified ovarian cyst, left side; I10 Essential (primary) hypertension; E78.5 Hyperlipidemia, unspecified; F32.9 Major depressive disorder, single episode, unspecified; Z79.899 Other long term (current) drug therapy; Z83.3 Family history of diabetes mellitus; Z83.438 Family history of other disorder of lipoprotein metabolism and other lipidemia; Z82.49 Family history of ischemic heart disease and other diseases of the circulatory system
CPT/HCPCS: 58552; S2900; 81025; 85025; 86850; 86900; 86901; 88307

== ENCOUNTER → 2018-10-21 | Outpatient (CLI) | payer BC ==
--- NOTE | 2018-10-22 14:13 | MR ---
EXAMINATION TYPE: MR liver wo/w con DATE OF EXAM: 10/21/2018 COMPARISON: CT abdomen and pelvis September 15, 2018. HISTORY: Disease of liver per order, liver lesion. Abnormal CT. CONTRAST: Standard multiplanar, multisequence MRI departmental protocol utilizing 12 mL intravenous Gadavist ga dolinium contrast. Imaging is performed of the abdomen focusing on the liver. FINDINGS: Liver: Liver remains normal in size. There is diffuse signal dropout consistent with diffuse fatty in filtration. Corresponding to CT in the right hepatic lobe posterior segment there is 2.3 x 2.2 cm rou nd lesion of slight T1 hypointensity and fairly isointense on T2-weighted images that shows heterogen eous postcontrast enhancement with delayed phase images showing more central scarlike and peripheral enhancement with central washout. No signal dropout. Scar is low T1 signal on precontrast images. Fin dings are consistent with focal FNH. No signal dropout noted which correlates. There is second larger lesion confirm their level of caudate lobe measuring 3.4 x 3.0 cm of similar i maging characteristics consistent with second FNH. No definitive additional lesions or intrahepatic ductal dilatation is seen. Other: Lung bases are clear. Gallbladder, pancreas, left adrenal gland, and spleen are normal in size . There is nearly 1.0 cm posterior limb right adrenal nodule or mass with diffuse signal dropout cons istent with lipid rich adenoma. Small and large bowel dilatation. No concerning renal masses or hydro nephrosis. No abdominal ascites. Osseous structures are intact. IMPRESSION: 1. Confirmation of diffuse fatty infiltration of liver with 2 solid liver lesions confirmed with mariana melyssa post MRI imaging characteristics consistent with multifocal FNH or focal nodular hyperplasias. 2. Confirmation of benign lipid rich 1.0 cm right adrenal adenoma on MRI.
== END | disposition home or self-care (01) ==
LOC: RADMRIMAIN 09:20
PROVIDERS: ATTEND Family Medicine
DX: K76.0 Fatty (change of) liver, not elsewhere classified (principal); K76.9 Liver disease, unspecified; D35.01 Benign neoplasm of right adrenal gland
CPT/HCPCS: 74183; A9585

== ENCOUNTER 2022-11-27 08:10 | Day surgery (SDC) | payer BC ==
[2022-11-23 09:27] VITALS: BMI 40.7
[~2022-11-27 08:10] MED LIST changes: -ACETAMINOPHEN IV (For NPO) 1,000 MG in EMPTY BAG 1 BAG IVPB ONE; +ACETAMINOPHEN TAB 500 MG TAB PO PRN; -DEXAMETHASONE SOD PHOSPHATE 10 MG/ML 1 ML VIAL IV ONE; +HEPARIN SODIUM,PORCINE/PF 5,000 UNIT/0.5 ML SYRINGE SQ PRN; -LIDOCAINE 1% 20 ML VIAL (10MG/ML) FOR IV START INTRADERMA PRN; -MIDAZOLAM 2 MG/2 ML VIAL IV PRN; -ONDANSETRON 4 MG/2 ML VIAL IVP ONE; -SCOPOLAMINE 1.5MG/72HR PATCH TRANSDERM ONE; -ceFAZolin IN SWFI 2 GM/20 ML SYRINGE IVP ONE
[2022-11-27] MEDS ORDERED: ONDANSETRON 4 MG/2 ML VIAL ONE (08:51)
[2022-11-27 08:53] VITALS: TEMP 97.7
[2022-11-27] MEDS ORDERED: DEXAMETHASONE SOD PHOSPHATE 4 MG/ML 1 ML VIAL IV ONE (08:53)
[2022-11-27] MEDS ORDERED: LACTATED RINGERS 1,000 ML IV ONE ×2 (09:00→11:33)
[2022-11-27] MEDS ORDERED: SUCCINYLCHOLINE CHLORIDE 200 MG/10 ML VIAL IV ONE (09:13)
[2022-11-27] MEDS ORDERED: MIDAZOLAM 2 MG/2 ML VIAL ONE (09:13)
[2022-11-27] MEDS ORDERED: PROPOFOL 10 MG/ML 20 ML VIAL IV ONE (09:13)
[2022-11-27] MEDS ORDERED: LIDOCAINE 2% INJ 20 MG/ML (2 ML VIAL) ONE (09:13)
[2022-11-27] MEDS ORDERED: KETOROLAC 15 MG/ML 1 ML VIAL ONE (09:13)
[2022-11-27] MEDS ORDERED: KETAMINE 10 MG/ML 20 ML VIAL ONE (09:13)
[2022-11-27] MEDS ORDERED: fentaNYL (PF) 50 MCG/ML 2 ML AMP ONE (09:13)
[2022-11-27] MEDS ORDERED: BUPIVACAINE (PF) 0.25% 10 ML VIAL SQ ONE ×2 (09:15→09:45)
--- NOTE | 2022-11-27 09:57 | P.OP ---
Date of Procedure: 11/27/22 Preoperative Diagnosis: Sebaceous cyst of back Postoperative Diagnosis: Infected sebaceous cyst of back Procedure(s) Performed: Incision and drainage of sebaceous cyst abscess Anesthesia: INNA Surgeon: Dougie Varner Estimated Blood Loss (ml): 5 Pathology: none sent Condition: stable Disposition: PACU Description of Procedure: The patient's placed on the operating table in the prone position after receiving general endotracheal anesthesia. Her back was prepped and draped in a sterile fashion. Patient had a 5 cm sebaceous cyst over the mid back which appeared to be inflamed. The area was anesthetized 1% local Xylocaine. The skin was then incised with a 15 blade. There was an abscess cavity. This was opened. The abscess cavity was drained. The sebaceous cyst lining could not be clearly seen due to this significant inflammatory change from the abscess cavity. The abscess cavity was cauterized there is no significant bleeding seen. The wound was flushed. And the wound was packed with wet-to-dry Kerlix. The sterile dressings was applied. Patient top she will well. She was sent to recovery room in stable condition.
[2022-11-27 11:46] VITALS: RESP 20
[2022-11-27 12:10] VITALS: PULSE 80
[2022-11-27 13:22] VITALS: BP 113/59
== END 2022-11-27 13:05 | disposition home health service (06) ==
LOC: OR 08:10
PROVIDERS: ATTEND Surgery
DX: L72.3 Sebaceous cyst (principal); I10 Essential (primary) hypertension; E78.5 Hyperlipidemia, unspecified; J45.909 Unspecified asthma, uncomplicated; F41.9 Anxiety disorder, unspecified; F32.9 Major depressive disorder, single episode, unspecified; E66.01 Morbid (severe) obesity due to excess calories; Z68.45 Body mass index [BMI] 70 or greater, adult; Z79.899 Other long term (current) drug therapy
CPT/HCPCS: 10060; J1100; J0690; J2405; J1644; J0665

== ENCOUNTER 2023-02-01 22:46 | Emergency (ER) | payer BC ==
[2023-02-01 23:41] VITALS: TEMP 99.3
[2023-02-02] MEDS ORDERED: SODIUM CHLORIDE 0.9% 1,000 ML IV STA (00:04)
[2023-02-02] MEDS ORDERED: KETOROLAC 15 MG/ML 1 ML VIAL IVP STA (00:05)
--- NOTE | 2023-02-02 00:06 | ED ---
General Adult HPI - General Chief complaint: Upper Respiratory Infection Stated complaint: Headache, Shortness of breath, weakness Time Seen by Provider: 02/01/23 23:42 Source: patient Mode of arrival: ambulatory Limitations: no limitations - History of Present Illness Initial comments: 47-year-old female presents to the ED with a chief complaint of URI symptoms. Patient states for the past 2-3 days has had symptoms of headache, myalgias, sore throat, congestion, cough. States that she was seen at urgent care for this and was provided prescription for azithromycin diagnosed with strep. Patient reports shortly after taking her 2 doses of azithromycin started to develop nausea and vomiting which prompted presentation to the ED for further evaluation. At this time, reports nausea or vomiting resolved and only notes headache, myalgias, sore throat, congestion. Denies chest pain or shortness of breath. No other complaints. - Related Data Home Medications Medication Instructions Recorded Confirmed Lisinopril-Hctz 20-25 mg 1 tab PO DAILY 09/15/18 11/23/22 [Zestoretic 20-25] Fluticasone Propionate 44 Mcg 1 puff INHALATION DIRECTED PRN 11/23/22 11/27/22 [Flovent 44 Mcg Inhaler] Ibuprofen [Motrin Ib] 400 mg PO BID PRN 11/23/22 11/23/22 Rosuvastatin [Crestor] 20 mg PO DAILY 11/23/22 11/27/22 Vortioxetine Hydrobromide 20 mg PO DAILY 11/23/22 11/23/22 [Trintellix] amLODIPine [Norvasc] 5 mg PO DAILY 11/23/22 11/23/22 Albuterol Inhaler [Ventolin Hfa 1 - 2 puff INHALATION Q6H PRN 11/27/22 11/27/22 Inhaler] Previous Rx's Medication Instructions Recorded HYDROcodone/APAP 5-325MG [[place] 1 tab PO Q6HR PRN #10 tab 11/27/22 5-325] Sulfamethox-Tmp 800-160Mg [Bactrim 1 tab PO Q12HR #25 tab 11/27/22 DS 800-160 mg] Amoxicillin/Potassium Clav 2 tab PO Q12H 5 Days #20 tab 02/02/23 [Augmentin Xr 1,000-62.5 Tab] Allergies Allergy/AdvReac Type Severity Reaction Status Date / Time No Known Allergies Allergy Verified 02/01/23 23:33 Review of Systems ROS Statement: Those systems with pertinent positive or pertinent negative responses have been documented in the HPI. ROS Other: All systems not noted in ROS Statement are negative. Past Medical History Past Medical History: Asthma, Hyperlipidemia, Hypertension Additional Past Medical History / Comment(s): snores -states improved with elevating head, having testing done for pre-diabetes., cyst on right back. History of Any Multi-Drug Resistant Organisms: None Reported Past Surgical History: Section, Hysterectomy, Uterine Ablation Additional Past Surgical History / Comment(s): C/S x2, Partial Hysterectomy Past Anesthesia/Blood Transfusion Reactions: No Reported Reaction Past Psychological History: Anxiety, Depression Smoking Status: Never smoker Past Alcohol Use History: Rare Past Drug Use History: None Reported - Past Family History Mother Family Medical History: Diabetes Mellitus, Hyperlipidemia, Hypertension Father Family Medical History: Deep Vein Thrombosis (DVT) General Exam Limitations: no limitations General appearance: alert, in no apparent distress Eye exam: Present: normal appearance Neck exam: Present: normal inspection Respiratory exam: Present: normal lung sounds bilaterally Cardiovascular Exam: Present: regular rate, normal rhythm GI/Abdominal exam: Present: soft Skin exam: Present: warm, dry Course Vital Signs 02/01/23 02/01/23 23:30 23:58 Temperature 99.3 F Pulse Rate 112 H Respiratory 20 20 Rate Blood Pressure 129/73 O2 Sat by Pulse 95 Oximetry Medical Decision Making - Medical Decision Making Was pt. sent in by a medical professional or institution ([facility], [facility], urgent care, hospital, or [facility]...) When possible be specific @ -No Did you speak to anyone other than the patient for history (EMS, parent, family, police, friend...)? What history was obtained from this source @ -No Did you review nursing and triage notes (agree or disagree)? Why? @ -I reviewed and agree with nursing and triage notes Were old charts reviewed (outside hosp., previous admission, EMS record, old EKG, old radiological studies, urgent care reports/EKG's, [facility] records)? Report findings @ -No old charts were reviewed Differential Diagnosis (chest pain, altered mental status, abdominal pain women, abdominal pain men, vaginal bleeding, weakness, fever, dyspnea, syncope, he adache, dizziness, GI bleed, back pain, seizure, CVA, palpatations, mental health, musculoskeletal)? @ -Streptococcal pharyngitis, sinusitis, viral infection. This is not meant to be an all-inclusive list. EKG interpreted by me (3pts min.). @ -None X-rays interpreted by me (1pt min.). @ -X-ray of the chest showed ill-defined infiltrates of the right mid lung field concerning for pneumonia. CT interpreted by me (1pt min.). @ -None done U/S interpreted by me (1pt. min.). @ -None done What testing was considered but not performed or refused? (CT, X-rays, U/S, labs)? Why? @ -None What meds were considered but not given or refused? Why? @ -None Did you discuss the management of the patient with other professionals (professionals i.e. , PA, PT ESCORT, lab, RT, psych nurse, social scientist, computational linguist, teacher, registration officer, case maker)? Give summary @ -No Was smoking cessation discussed for >3mins.? @ -No Was critical care preformed (if so, how long)? @ -No Were there social determinants of health that impacted care today? How? (Homelessness, low income, unemployed, alcoholism, drug addiction, transportation, low edu. Level, literacy, decrease access to med. care, [facility], rehab)? @ -No Was there de-escalation of care discussed even if they declined (Discuss DNR or withdrawal of care, Hospice)? DNR status @ -No What co-morbidities impacted this encounter? (DM, HTN, Smoking, COPD, CAD, Cancer, CVA, ARF, Chemo, Hep., AIDS, mental health diagnosis, sleep apnea, morbid obesity)? @ -None Was patient admitted / discharged? Hospital course, mention meds given and route, prescriptions, significant lab abnormalities, going to OR and other pertinent info. @ -Discharge A 47-year-old female presenting to the ED with concerns of headache, myalgias, cough, and nausea and vomiting after taking dose of azithromycin today. Cephid negative. X-ray did show area of the mid right lung field concerning for pneumonia. Patient already received prescription for azithromycin. We will add on prescription for Augmentin. At this time, vital signs stable. Discharged home. Discussed return precautions with patient who verbalizes agreement. Undiagnosed new problem with uncertain prognosis? @ -No Drug Therapy requiring intensive monitoring for toxicity (Heparin, Nitro, Insulin, Cardizem)? @ -No Were any procedures done? @ -No Diagnosis/symptom? @ -Community acquired pneumonia Acute, or Chronic, or Acute on Chronic? @ -Acute Uncomplicated (without systemic symptoms) or Complicated (systemic symptoms)? @ -Uncomplicated Side effects of treatment? @ -No Exacerbation, Progression, or Severe Exacerbation? @ -No Poses a threat to life or bodily function? How? (Chest pain, [place], OR, pneumonia, PE, COPD, DKA, ARF, appy, cholecystitis, CVA, Diverticulitis, Homicidal, Suicidal, threat to staff... and all critical care pts) @ -No - Lab Data Lab Results 02/01/23 Range/Units 23:56 Influenza Type A (PCR) Not Detected (Not Detectd) Influenza Type B (PCR) Not Detected (Not Detectd) RSV (PCR) Not Detected (Not Detectd) SARS-CoV-2 (PCR) Not Detected (Not Detectd) Disposition Clinical Impression: Community acquired bacterial pneumonia Disposition: HOME SELF-CARE Condition: Good Instructions (If sedation given, give patient instructions): Bacterial Pneumonia (ED) Additional Instructions: Please return to the Emergency Department if symptoms worsen or any other concerns. Prescriptions: Amoxicillin/Potassium Clav [Augmentin Xr 1,000-62.5 Tab] 2 tab PO Q12H 5 Days #20 tab Is patient prescribed a controlled substance at d/c from ED?: No Referrals: Juliann Almaraz DO [Primary Care Provider] - 1-2 days Time of Disposition: 02:12
--- NOTE | 2023-02-02 01:48 | XR ---
EXAM: XR Chest, 2 Views CLINICAL HISTORY: cough TECHNIQUE: Frontal and lateral views of the chest. COMPARISON: No relevant prior studies available. FINDINGS: Lungs: Patchy ill-defined infiltrate in the periphery of the right midlung field, likely right upper lobe. No CHF. Pleural space: No pleural effusion. No pneumothorax. Heart: No cardiomegaly. Mediastinum: Unremarkable. Bones/joints: Degenerative changes of the spine. IMPRESSION: Patchy ill-defined infiltrate/pneumonia in the periphery of the right midlung field, likely upper lobe
[2023-02-02 02:29] VITALS: BP 101/65; PULSE 81; RESP 16
== END 2023-02-02 02:15 | disposition home or self-care (01) ==
LOC: EC 22:46
DX: J15.8 Pneumonia due to other specified bacteria (principal); I10 Essential (primary) hypertension; J45.909 Unspecified asthma, uncomplicated; E78.5 Hyperlipidemia, unspecified; F41.9 Anxiety disorder, unspecified; F32.A Depression, unspecified; Z20.822 Contact with and (suspected) exposure to COVID-19; Z79.51 Long term (current) use of inhaled steroids; Z79.899 Other long term (current) drug therapy
CPT/HCPCS: 99284; 96374; 96361; 87636; 71046; J1885